=== PATIENT | male | born 1980 | race Two or more races ===

== ENCOUNTER 2022-11-18 07:47 | Emergency (ER) | payer SELFPAY ==
[~2022-11-18] VITALS: Ht 175.3 cm; Wt 100.1 kg
[2022-11-18 08:13] VITALS: BP 142/94
[2022-11-18] MEDS ORDERED: KETOROLAC TROMETH 60MG/2ML VIAL IM ONE (08:30)
[2022-11-18 08:42] LABS: Urine Bacteria NONE SEEN /hpf (None Seen); Urine Blood Negative /uL (Negative); Urine Specific Gravity 1.014 (1.001-1.035); Urine WBC <1 /hpf (0 - 3)
[2022-11-18] MEDS ORDERED: IBUP800T27 PO (08:54)
[2022-11-18] MEDS ORDERED: METH750T22 PO (08:54)
== END 2022-11-18 08:59 | disposition home or self-care (01) ==
LOC: ER 07:47
DX: S39.012A Strain of muscle, fascia and tendon of lower back, initial encounter (principal); X58.XXXA Exposure to other specified factors, initial encounter; Y93.89 Activity, other specified; Y92.89 Other specified places as the place of occurrence of the external cause; Y99.8 Other external cause status
CPT/HCPCS: 71046; 81001; 96372; 99284; J1885